=== PATIENT | male | born 2000 | race Caucasian/White ===

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

== ENCOUNTER → 2024-07-05 | Outpatient (CLI) | payer OTHER | LOC: M RAD 11:12 | PROVIDERS: ATTEND Physician Assistant | DX: S83.015A Lateral dislocation of left patella, initial encounter (principal); Y93.9 Activity, unspecified; Y92.9 Unspecified place or not applicable ==